=== PATIENT | female | born 1985 | race Caucasian/White ===

== ENCOUNTER 2023-02-15 05:16 | Inpatient (IN) | payer BC, SELFPAY ==
[2023-02-15] VITALS (29 sets, daily range): BP systolic 111–147; BP diastolic 58–87; PULSE 52–99; RESP 16–18; TEMP 36.3–36.9; O2SAT 96–100; BMI 35.4
[2023-02-15] MEDS: LACTATED RINGERS 1000 ML 1,000 ML 500 ML IV (06:00)
[2023-02-15 06:08] LABS: Hemoglobin* 10.7 gm/dL (12.0-16.0)
[2023-02-15] MEDS: CEFAZOLIN 2 GM INJ IVP (07:45)
[2023-02-15] MEDS: LACTATED RINGERS 1000 ML 1,000 ML 125 ML IV ×2 (08:02→10:19)
--- NOTE | 2023-02-15 08:07 | W.ANESCHARGE ---
Anesthesia Charges Start Date/Time Anesthesia Start Date: 02/15/23 Anesthesia Start Time: 07:37 Stop Date/Time Anesthesia Stop Date: 02/15/23 Anesthesia Stop Time: 09:15
--- NOTE | 2023-02-15 08:59 | PM.OBPRCCS ---
Procedure Date of procedure: 02/15/23 Pre-op diagnosis: 38 weeks, h/o C-sections x2 Post-op diagnosis: same Procedure Done: only Will [facility] bill your pro fee for this procedure?: Yes Blood Loss Measurement Type: QBL (392 mL) Bakri Used: No IV fluids (mL): 1,900 Urine Output (mL): 400 Surgeon: Ophelia Johnson MD Anesthesia type: Spinal Findings: Live-born female, cephalic presentation, Apgars 8 9 at 1 and 5 minutes respectively. Moderate amount of scar tissue between the fascia, rectus muscles, anterior peritoneum, omentum, bladder, and lower uterine segment. Procedure Description: After obtaining informed consent, the patient was taken to the operating room where spinal anesthesia was obtained and found to be adequate. She was prepared and draped in the normal sterile fashion in the dorsal supine position with a leftward tilt. A Pfannenstiel skin incision was made with a scalpel along the line of the patient's previous Pfannenstiel scar. This incision was carried down to the underlying layer of fascia with the Bovie. The fascia was incised in the midline and the incision extended laterally. The superior and inferior aspects of the fascial incision were grasped with Arturo clamps, elevated and the underlying rectus muscles dissected off sharply and with electrocautery. This dissection took an increased amount of time given the dense adhesions. The rectus muscles were then in the midline. The adhesions between the bladder and lower uterine segment were taken down sharply with Metzenbaum scissors. The George O retractor was then placed into the incision. The lower uterine segment was then incised in a transverse fashion with the scalpel. Upon entry into the uterus, copious clear amniotic fluid was noted. The uterine incision was extended laterally with blunt finger fractionation. The 's head was delivered atraumatically, followed by the remainder of the infant's body. The nose and mouth were suctioned with the bulb suction. The cord was doubly clamped and cut, and the infant was handed off the field for evaluation. The placenta was delivered spontaneously with umbilical cord traction and fundal massage. The uterus was cleared of all clots and debris. The uterine incision was reapproximated in a running locking fashion with a 0 chromic suture. A 2nd layer of the same suture was used to imbricate in horizontal fashion. The gutters were irrigated and suctioned. All instruments and retractors were removed. The omental adhesions were isolated, clamped doubly with Madiha clamps, transected, and suture ligated with 2 0 Vicryl. The anterior peritoneum was reapproximated in a running fashion with a 3-0 Vicryl suture. The subfascial tissues were carefully inspected and hemostasis assured. The fascia was reapproximated in a running fashion with a looped 0 Maxon suture. The subcutaneous tissues were copiously irrigated. Hemostasis was assured. The skin was closed in a subcuticular fashion with 4-0 Vicryl. Exofin surgical glue and dressing were applied. A TAP block was administered by Anesthesia at the conclusion of the procedure. The patient tolerated the procedure well. Sponge, lap, needle, and instrument counts were reported as correct x2. The patient was taken to the recovery room, awake, and in stable condition. She did receive 2 grams of IV Ancef preoperatively. Complications: None. Condition: stable Disposition: floor
[2023-02-15] MEDS: ACETAMINOPHEN 500 MG TABLET 1000 MG PO ×3 (09:43→22:04)
--- NOTE | 2023-02-15 10:47 | W.PM.NB ---
Nerve Block Nerve Block Time Seen by Provider: 09:10 Date Seen: 02/15/23 Type of block requested by surgeon for post-operative analgesia: TAP Side: bilateral Time out performed: Yes Verification of patient name: Yes Verification of date of : Yes Name of person performing procedure: Mar Manuel Continuous monitoring Was continuous monitoring of O2 sat, B/P, quality assurance monitor final, recorded every 15 minutes?: Yes Procedure Checklist: sterile prep, needles and gloves Ultrasound guided. Images saved: Yes Medications given in 5ml increments after negative aspiration: Marcaine %: 0.25 mL: 30 Needle gauge: 21 and Exparel mL: 10 Needle gauge: 21 Patient tolerated procedure well: Yes Block Charges Block Charge (with Pro Fee): TAP Unilateral Use of Ultrasound Machine for Block: Yes- US Guidance/pain block
[2023-02-15] MEDS: diphenhydrAMINE 50 MG/ML inj 12.5 MG IVP (12:17)
[2023-02-15] MEDS: OXYCODONE 5 MG TABLET PO (20:24)
[2023-02-15] MEDS: LANOLIN CREAM 1 APPLIC TOPICAL (20:24)
[2023-02-16] VITALS (15 sets, daily range): BP systolic 117–139; BP diastolic 66–86; PULSE 16–85; RESP 16; TEMP 36.4–37; O2SAT 96–99
[2023-02-16] MEDS: OXYCODONE 5 MG TABLET PO ×5 (00:46→23:00)
[2023-02-16] MEDS: ACETAMINOPHEN 500 MG TABLET 1000 MG PO ×3 (04:38→20:53)
[2023-02-16 07:14] LABS: Hemoglobin* 9.4 gm/dL (12.0-16.0)
--- NOTE | 2023-02-16 07:34 | PM.OBPNVD1 ---
Documented by User: Jakub Adams CNM 02/16/23 07:53 OB - PN:Subj Subjective Date Seen: 02/16/23 Patient comments OB post-: pain well controlled, tolerating diet and flatus present [place] infant status: and doing well feeding status: exclusively Narrative: Don is a 37 y.o. who was admitted to [facility] for repeat section. ?She had an uncomplicated .?The patient feels well. ?The pain is well controlled with current medications. ?She has no new complaints. ?She is breast feeding and reports things are going well.? the patient has done well.? Vitals have been stable.? She has remained afebrile.? Has a good appetite, is tolerating a general diet. ?She is voiding without difficulty.?This morning she complains of some suprapubic cramping and urgency which is similar to symptoms she has had with a UTI. Denies burning with urination. She is passing gas and has not had a bowel movement.? She is ambulating and denies any dizziness.? Has Small amount of rubra lochia. She is planning discharge home tomorrow. OB - PN: Obj Exam Physical Exam: Vital signs: Temp Pulse Resp BP Pulse Ox O2 Del Method 98.6 F 82 16 127/79 100 Room Air 02/16/23 05:30 02/16/23 05:30 02/16/23 07:00 02/16/23 05:30 02/15/23 12:00 02/15/23 09:51 Narrative: GENERAL APPEARANCE:? normal affect, alert, no distress MOOD:? appropriate CHEST:? clear to auscultation HEART:? regular rate and rhythm ABDOMEN:? soft, non-tender the uterine fundus is At Umbilicus, Midline and is appropriate for the stage of recovery.. EXTREMITIES:? normal and trace edema Incision: dressing clean dry intact, due to be removed today Urinary Catheter Management: Urethral: Cath placed during this visit: yes, but has since been removed by the nurse Reason for continuing: surgical procedure Insertion date: 02/15/23 Insertion time: 07:48 Removal date: 02/15/23 Removal time: 22:15 OB - PN: Obj Data Labs Labs: Laboratory Results - last 24 hr 02/16/23 07:04 Hgb 9.4 L OB - PN: A/P Delivery Assessment and Plan (1) care and examination immediately after delivery: Status: Acute (2) Lactating mother: Status: Acute Plan day: 1 Plan: routine care Documented by User: Nanda Ding CNM 02/16/23 07:58 OB - PN: Obj Exam Physical Exam: Narrative: GENERAL APPEARANCE:? normal affect, alert, no distress MOOD:? appropriate CHEST:? clear to auscultation HEART:? regular rate and rhythm ABDOMEN:? soft, non-tender the uterine fundus is At Umbilicus, Midline and is appropriate for the stage of recovery. EXTREMITIES:? normal and trace edema Incision: dressing clean dry intact, due to be removed today Urinary Catheter Management: Urethral: Cath placed during this visit: yes, but has since been removed by the nurse OB - PN: A/P Delivery Assessment and Plan (1) care and examination immediately after delivery: Status: Acute (2) Lactating mother: Status: Acute Plan Comments: Routine post-op care. May see if desired. Anticipate discharge tomorrow, 02/17, may stay until 02/18.
[2023-02-16] MEDS: LEVOTHYROXINE 125 MCG TABLET PO (07:57)
[2023-02-16] MEDS: DOCUSATE SODIUM 100 MG CAPSULE PO (07:57)
[2023-02-16] MEDS: FERROUS SULFATE 325 MG TABLET PO (08:01)
[2023-02-16] MEDS: IBUPROFEN 600 MG TABLET PO ×2 (08:01→17:18)
[2023-02-16 13:47] LABS: Appearance Urine Cloudy (Clear); Bilirubin Urine Negative (Negative); Color Urine Red (Yellow); Glucose Urine Negative (Negative); Ketones Urine Negative (Negative)
[2023-02-16 13:48] LABS: Blood Urine 3+ (Negative); Leukocyte Esterase Urine Negative (Negative); Nitrite Urine Negative (Negative); Protein Urine 2+ (Negative); Specific Gravity Urine 1.015 (1.000-1.030); Urobilinogen Urine 0.2 (0.2-1.0)
[2023-02-16 13:49] LABS: RBC Urine >100 (0-2); Squamous Epithelial Cell Urine Many (None-Few); WBC Urine 0-2 (0-5)
[2023-02-17] MEDS: OXYCODONE 5 MG TABLET PO ×4 (04:59→21:29)
[2023-02-17] MEDS: IBUPROFEN 600 MG TABLET PO ×2 (06:03→16:08)
--- NOTE | 2023-02-17 07:35 | P.OBPN_ITS ---
OB - PN:Subj Subjective Time Seen by Provider: :30 Date Seen: 02/17/23 Interval history: Don is a 37 y.o. who was admitted to [facility] for a repeat .? She had an uncomplicated repeat .? ? ? Narrative: The patient feels well.? The pain is well controlled with current medications, does feel as though she needs the oxycodone.? She has no new complaints.? She is breast feeding and reports things are now somewhat of a struggle.? the patient has done well.? Vitals have been stable.? She has remained afebrile.? Has a good appetite, is tolerating a general diet.? She is voiding without difficulty.? She is passing gas and has not had a bowel movement.? She is ambulating and denies any dizziness.? Has Small amount of rubra lochia.? OB - PN: Obj Exam Physical Exam: Vital signs: Temp Pulse Resp BP Pulse Ox O2 Del Method 97.8 F 75 16 117/66 98 Room Air 02/16/23 23:50 02/16/23 23:50 02/16/23 23:50 02/16/23 23:50 02/16/23 23:50 02/16/23 23:50 Narrative: VSS.? Afebrile? GENERAL APPEARANCE:? normal affect, alert, no distress? MOOD:? appropriate? HEENT: normocephalic, neck supple, full ROM? CHEST:? Symmetrical chest wall movement.? Normal respiratory effort.? Clear to auscultation? HEART:? regular rate and rhythm? ABDOMEN:? soft, non-tender. Uterine fundus is firm, at Umbilicus, Midline and is appropriate for the stage of recovery.? Bowel sounds present.? EXTREMITIES:? normal and trace edema? SKIN: warm, dry.? ? Incision clean/dry/well approximated.? No signs of infection noted.? Urinary Catheter Management: Urethral: Cath placed during this visit: yes, but has since been removed by the nurse Reason for continuing: surgical procedure Insertion date: 02/15/23 Insertion time: 07:48 Removal date: 02/15/23 Removal time: 22:15 OB - PN: Obj Data Labs Labs: Laboratory Results - last 24 hr 02/16/23 13:25 Urine Color Red A Urine Appearance Cloudy A Urine pH 7.0 Ur Specific [place] 1.015 Urine Protein 2+ A Urine Glucose (UA) Negative Urine Ketones Negative Urine Blood 3+ A Urine Nitrite Negative Urine Bilirubin Negative Urine Urobilinogen 0.2 Ur Leukocyte Esterase Negative Urine RBC >100 A Urine WBC 0-2 Ur Squamous Epith Cells Many A Urine Bacteria None OB - PN: A/P Delivery Assessment and Plan (1) care and examination immediately after delivery: Status: Acute (2) Lactating mother: Status: Acute Plan day: 2 Comments: Assessment/Plan? G 3 P 3 status post uncomplicated repeat .? ?? 1.? Continue route PP cares? 2.? .? May see if desired? 3.? Anticipate discharge home tomorrow? 4.? Acute anemia.? Iron supplement previously ordered ?
[2023-02-17 09:00] VITALS: BP 136/71; PULSE 75; RESP 16; TEMP 36.4; O2SAT 98
[2023-02-17] MEDS: LEVOTHYROXINE 125 MCG TABLET PO (09:07)
[2023-02-17] MEDS: DOCUSATE SODIUM 100 MG CAPSULE PO (09:07)
[2023-02-17 12:00] VITALS: BP 138/80; PULSE 96; RESP 16; TEMP 36.3
[2023-02-17] MEDS: ACETAMINOPHEN 500 MG TABLET 1000 MG PO ×2 (12:03→20:08)
[2023-02-17 16:45] VITALS: BP 132/91; PULSE 85; RESP 16; TEMP 36.8
[2023-02-17 19:39] VITALS: BP 125/65; PULSE 74; RESP 16; TEMP 36.6; O2SAT 97
[2023-02-17] MEDS: LANOLIN CREAM 1 APPLIC TOPICAL (21:26)
[2023-02-18] MEDS: IBUPROFEN 600 MG TABLET PO (03:44)
[2023-02-18 03:47] VITALS: BP 132/85; PULSE 77; RESP 16; TEMP 36.8; O2SAT 97
[2023-02-18] MEDS: OXYCODONE 5 MG TABLET PO ×2 (06:21→14:44)
[2023-02-18] MEDS: ACETAMINOPHEN 500 MG TABLET 1000 MG PO ×2 (06:22→14:43)
[2023-02-18 10:00] VITALS: BP 126/78; PULSE 79; RESP 16; TEMP 36.8; O2SAT 97
--- NOTE | 2023-02-18 11:28 | P.DS_ITS ---
DS: Providers Provider Time Seen by Provider: 09:00 Date Seen: 02/18/23 Date of admission: 02/15/23 05:16 Primary care physician: Not a Local Provider Admitting Clinician: Ophelia Johnson MD Attending Physician on discharge: Ophelia Johnson MD Date of Discharge: 02/18/23 DS: Diagnosis Discharge Diagnosis (1) care and examination immediately after delivery: Status: Acute (2) Anxiety: Status: Chronic (3) Asthma: Status: Chronic (4) CKD (chronic kidney disease): Status: Acute Problem details: CKD stage 1-2. IgA nephropathy, biopsy proven. *Seen nephrology in recommends monthly BMP,UA, urine Pr/Cr. Close monitoring of blood pressures. (5) Hypothyroid: Status: Chronic (6) ADHD (attention deficit hyperactivity disorder): Status: Chronic (7) History of recurrent UTI (urinary tract infection): Status: Chronic Exam Narrative: Exam Narrative: Physical exam: General: No acute distress Psych: Alert and oriented x3, full affect HEENT: Normocephalic, atraumatic Neck: No cervical adenopathy, no thyromegaly Heart: Regular rate and rhythm, no murmur rub or gallop Lungs: Clear to auscultation bilaterally Abdomen: Normoactive bowel sounds, soft, appropriately tenderness at incision site. No rebound, or guarding, no masses Incision: Clear, dry, intact without erythema, induration, or discharge. Skin: No lesions or rashes Breasts: no nodules or masses, no nipple discharge, no axillary adenopathy Lower extremities: No edema or erythema Pelvic exam: Scant bleeding on pad. Const: Vital Signs, click to edit/add: Vital Signs - 24 hr 02/17/23 12:00 02/17/23 16:45 02/17/23 19:39 Temperature 97.3 F L 98.3 F 97.9 F Pulse Rate [Pulse Oximeter] 96 85 74 Respiratory Rate 16 16 16 Blood Pressure [Ri ght Arm] 138/80 132/91 H 125/65 Pulse Oximetry 97 Oxygen Delivery Me thod Room Air Room Air Room Air 02/18/23 03:47 02/18/23 10:00 Temperature 98.2 F 98.2 F Pulse Rate [Pulse Oximeter] 77 79 Respiratory Rate 16 16 Blood Pressure [Ri ght Arm] 132/85 126/78 Pulse Oximetry 97 97 Oxygen Delivery Me thod Room Air Room Air OB - DS: Summary Hospital Course Hospital Course: The patient is a 37 year old at 38 weeks gestation that was admitted to the [facility] on 02/15/23 for scheduled repeat due to repeat CD x2. She had an uncomplicated delivery. She delivered a viable girl . She is attempting . the patient has done well. She's here for 3 days due to baby needing bilirubin light. She has anemia prior to delivery. Preop hgb 10.7, postop hgb 9.4. Being treated with PO Iron Q48H. Overnight patient had no complaints. Her pain is well controlled on oral pain medications. She is tolerating a regular diet. She has passed flatus. She is ambulating without difficulty. Lochia is scant. She is urinating without denton. Patient denies chest pain, SOB, n/v, headache, RUQ pain, vision changes, dizziness. Time spent discussing smoking cessation with patient: 3 to 10 minutes Peripartum Data Procedures: Procedures Operation Date: 02/15/23 07:15 Actual Procedure Side Surgeon p Section Ophelia Johnson MD Infant Gender: Female Time Spent with Patient Time attestation: Total time spent providing and/or coordinating discharge services: Discharge Plan Discharge Disposition: Home, Self-Care Date of Admission: 02/15/23 05:16 Primary Care Provider: Provider,Not a Local Condition: Stable Anticipated Discharge Date/Time: 02/18/23 11:28 Discharge Medications: New acetaminophen 500 mg Tablet 1,000 mg PO Q6H PRN (Reason: Pain) 30 Days Qty: 60 0RF ferrous sulfate 325 mg (65 mg iron) Tablet 325 mg PO Q48H 30 Days Qty: 15 0RF docusate sodium 100 mg Capsule 100 mg PO DAILY 30 Days Qty: 30 0RF ibuprofen 600 mg Tablet 600 mg PO Q6H PRN (Reason: Pain) 30 Days Qty: 60 0RF Lanolin (HPA) 100 % cream 1 applic topical Q1H PRN90 Days Qty: 21 0RF simethicone 80 mg Tablet,Chewable 80 - 160 mg PO Q4H PRN (Reason: Gas) 30 Days Qty: 60 0RF oxycodone 5 mg Tablet 5 mg PO Q6H PRN (Reason: Pain) 14 Days Qty: 20 0RF Continued levothyroxine 125 mcg tablet 125 mcg PO DAILY albuterol sulfate 90 mcg/actuation HFA aerosol inhaler 2 puff INHALATION Q4H PRN Trinate 28 mg iron- 1 mg tablet 1 tab PO DAILY ferrous sulfate [Iron (ferrous sulfate)] 1 tab PO DAILY Discharge Orders: Discharge Order (Routine); Ordered 02/18/23 Ordered By: Cynthia Merino Patient Education: (DC) Additional Instructions: Discharge instructions were reviewed with the patient including signs and symptoms of infection and home going medications. Lifting Restrictions: 15 pounds for [address] while taking narcotic pain medication. 1-2 weeks No high impact or core exercises for 6 weeks. Nothing vaginally for 6 weeks: No tampons or intercourse. Off Work or School for 8 weeks. Symptoms to report to doctor: -Bleeding that saturates more than one pad per hour ?-Passing clots larger than the size of a golf ball ?-Pain not relieved by prescribed medication ?-Fever above 100.4 degrees Fahrenheit ?-A foul vaginal odor ?-Difficulty in emotions, mood and functions ?-Thoughts of hurting yourself and/or ?-Painful, reddened area in your breast ?-Any drainage, redness or tenderness in your IV/epidural site ?-Severe headache that doesn't improve after taking medications ?-Changes in vision, including temporary loss of vision, blurred vision, and/or light sensitivity ?-Upper abdominal pain (usually under ribs on the right side) ?-Decrease in urination or painful, frequent urinating ?-Chest pain ?-Shortness of breath ?-Tenderness or pain with redness and/swelling in the calf(s) of your leg Follow Up with a [facility] provider: 2 week : discuss feeding, control options and screen for anxiety/depression. 6 week visit for physical exam consultation services are available to all mothers and babies for the first year after delivery.? To make an appointment, please call [phone]. Follow Up Appointments: Provider,Not a Local [Primary Care Provider] - Forms: MyHealth Info Instructions
== END 2023-02-18 16:00 | disposition home or self-care (01) | DRG 540 ==
PROVIDERS: Advanced Practice Midwife; Admitting Provider Obstetrics & Gynecology; Visit Provider Obstetrics & Gynecology
PROC: 10D00Z1 Extraction of Products of Conception, Low, Open Approach (ICD-10-PCS; CPT 59514; principal; 2023-02-15 07:15)
DX: O34.211 Maternal care for low transverse scar from previous cesarean delivery (principal); O99.892 Other specified diseases and conditions complicating childbirth; N18.2 Chronic kidney disease, stage 2 (mild); N02.8 Recurrent and persistent hematuria with other morphologic changes; O99.344 Other mental disorders complicating childbirth; F41.9 Anxiety disorder, unspecified; F90.9 Attention-deficit hyperactivity disorder, unspecified type; J45.909 Unspecified asthma, uncomplicated; O99.284 Endocrine, nutritional and metabolic diseases complicating childbirth; Z87.440 Personal history of urinary (tract) infections; E03.9 Hypothyroidism, unspecified; O99.02 Anemia complicating childbirth; D64.9 Anemia, unspecified; Z3A.38 38 weeks gestation of pregnancy; Z37.0 Single live birth; G89.18 Other acute postprocedural pain
CPT/HCPCS: 01961; 36415; 64488; 76942; 81003; 81015; 85018; 86850; 86900; 86901; A9270; C9290; J0665; J0690; J1200; J2274; J2371; J2405; J2590; J7120

== ENCOUNTER 2023-03-01 14:03 | Outpatient (CLI) | payer BC, SELFPAY ==
--- NOTE | 2023-03-01 14:00 | CRLHL7_ITS ---
For Patients: As a result of the Cures Act, medical imaging exams and procedure reports are released immediately into your electronic medical record. You may view this report before your referring provider. If you have questions, please contact your health care provider. Indication: RLQ PAIN, R/O Abscess OR HEMATOMA Technique: Grayscale and color Doppler ultrasound of the right lower quadrant subcutaneous tissues. Comparison: CT 11/04/2020 Findings: There is a somewhat ill-defined area decreased echogenicity within the subcutaneous fat in the right lower quadrant measuring 1.7 x 2.1 x 3.1 cm. This is located superolateral to the section scar. No abnormal vascularity. Impression: Ill-defined area hypoechoic nonvascular tissue within the right lower quadrant subcutaneous fat likely representing phlegmonous tissue. No drainable abscess. Dictated by Syed Dee MD @ 03/02/2023 10:27:16 AM (Electronically Signed)
== END 2023-03-01 14:04 | disposition home or self-care (01) ==
LOC: US 14:04
PROVIDERS: Visit Provider Advanced Practice Midwife
DX: R10.31 Right lower quadrant pain (principal); Z98.891 History of uterine scar from previous surgery
CPT/HCPCS: 76857

== ENCOUNTER 2023-03-09 14:02 | Outpatient (CLI) | payer BC, SELFPAY ==
--- NOTE | 2023-03-09 14:00 | CRLHL7_ITS ---
For Patients: As a result of the Cures Act, medical imaging exams and procedure reports are released immediately into your electronic medical record. You may view this report before your referring provider. If you have questions, please contact your health care provider. Indication: INFECTION OF OBSTETRIC SURGICAL WOUND Technique: Grayscale and color Doppler ultrasound of the area of concern within the anterior abdominal wall. Comparison: 03/01/2023 Findings: Scar tissue is present. No drainable abscess. No abnormal vascularity. Impression: No drainable abscess. Dictated by Syed Dee MD @ 03/10/2023 11:28:08 AM (Electronically Signed)
== END 2023-03-09 14:03 | disposition home or self-care (01) ==
LOC: US 14:03
PROVIDERS: Visit Provider Advanced Practice Midwife
DX: O86.00 Infection of obstetric surgical wound, unspecified (principal)
CPT/HCPCS: 76857